=== PATIENT | female | born 2000 | race Hispanic/Latino ===

== ENCOUNTER 2024-11-09 11:50 | Emergency (ER) | payer MEDICAID ==
[~2024-11-09] VITALS: Ht 157.5 cm; Wt 59.0 kg
[2024-11-09 12:02] VITALS: BP 164/131; PULSE 135; RESP 16; TEMP 98.1; O2SAT 99
--- NOTE | 2024-11-09 12:14 | ERN ---
General Chief Complaint: Vaginal Bleeding Stated Complaint: HAVING Time Seen by MD: 11:51 Time Seen by Midlevel: 11:51 Source: patient, family History of Present Illness Initial Comments 24-year-old female presents to the emergency department due to vaginal bleeding. Patient reports she is currently 12 weeks A0. Patient states she had a ultrasound done two weeks ago in the told her there was a sac but no embryo. Patient has been scheduled for a D&C. Patient reports vaginal bleeding initiated today, abdominal cramping but denies any fever, shortness of breath, headache or further associated symptoms. Denies significant past medical history. Allergies: Coded Allergies: No Known Drug Allergies (Unverified Allergy, Unknown, 11/09/24) Past Medical History Past Medical History: No Pertinent History Past Surgical History: None Female( History) : 1 Para: 0 ROS Dictation Constitutional: Negative for fever,chills, and weight loss Eyes: Negative for injury, pain,redness, and discharge ENT: Negative for injury,pain or swelling Cardiovascular: Negative for chest pain, palpitations, and edema Respiratory: Negative for shortness of breath, cough, and wheezing, Abdomen/GI: Positive for lower abdominal/pelvic cramping Negative for nausea, vomiting, diarrhea, and constipation Back: Negative for injury and pain : Positive for vaginal bleeding Negative for painful urination, or discharge MS/Extremity: Negative for injury and deformity Skin: Negative for rash, and discoloration Neuro: Negative for headache, weakness, numbness, tingling, and seizure Psych: Negative for suicide ideation, homicidal ideation, and hallucinations Physical Exam Physical Exam Dictation General: awake, alert, no acute distress Head/Face: Normocephalic, atraumatic Eyes: PERRL, EOMI, normal conjunctiva ENT: oral cavity clear, oral mucosa moist Neck: Supple, normal range of motion Cardiovascular: RRR, normal S1/S2 Respiratory: CTAB, no respiratory distress, no rales or wheezes Abdomen: Soft, non-tender, non-distended, no guarding or rebound. Skin: Warm, dry, normal turgor, no rash MS/Extremity: Pulses equal, no cyanosis, neurovascular intact, FROM Neuro: COAx4, GCS 15, strength 5/5, CN 2-12 intact, normal cerebellar exam, normal gait Psych: Normal behavior, mood, and affect normal MDM MDM: Differential diagnosis: Threatened , miscarriage, nonviable Rationale: 24-year-old female presents to the emergency department due to vaginal bleeding. Patient reports she is currently 12 weeks A0. Patient states she had a ultrasound done two weeks ago in the told her there was a sac but no embryo. Patient has been scheduled for a D&C. Patient reports vaginal bleeding initiated today, abdominal cramping but denies any fever, shortness of breath, headache or further associated symptoms. Denies significant past medical history. It was discussed with patient that labs and ultrasound would be ordered however required patient would need to be transferred out of the hospital due to not having OB and labor and delivery available in the hospital. Patient stated she wanted to leave and go to [facility]. Patient signed out AMA. There are no social concerns with this patient. I independently interpreted the test that were performed, results were reviewed by me and considered findings on radiology if ordered. Medical management and examination interpretation discussions were had by me with other qualified healthcare professionals as indicated for the patient's care. ED Course Vital Signs Date Time Temp Pulse Resp B/P (MAP) Pulse Ox O2 Delivery O2 Flow Rate FiO2 11/09/24 12:02 98.1 135 16 164/131 99 Room Air* 0 21 11/09/24 12:00 98.1 135 16 164/131 99 Room Air 0 DX & DISP Disposition: AMA Departure Impression: Primary Impression: Left against medical advice Condition: Stable Referrals: SELF,REFERRAL (PCP) I performed the substantive portion of the visit. I have reviewed and personally made and approve the management plan that is documented in the notes by myself or the CRISTY. I acknowledge full responsibility for the patient's management plan. GABRIEL PONCE Nov 09, 2024 12:14
== END 2024-11-09 12:07 | disposition left against medical advice (07) ==
LOC: EDBD 11:50 → EDH 11:50
DX: O20.9 Hemorrhage in early pregnancy, unspecified (principal); Z3A.12 12 weeks gestation of pregnancy
CPT/HCPCS: 99281